=== PATIENT | male | born 1960 | race Caucasian/White ===

== ENCOUNTER 2018-04-16 15:09 | Emergency (ER) | payer OTHER ==
[~2018-04-16] VITALS: Ht 182.9 cm; Wt 102.0 kg
[2018-04-16 15:41] LABS: HEMATOCRIT 38.2 % (38.0-50.0); HEMOGLOBIN 13.6 G/DL (12.5-16.6); MCHC 35.6 G/DL (30.0-36.0); PLATELET COUNT 164 K/uL (156-360); RBC DIS.WIDTH-CV 12.5 % (11.8-14.6); RBC DIS.WIDTH-SD 39.2 % (39-53); RED BLOOD COUNT 4.39 M/uL (4.00-5.50); WHITE BLOOD COUNT 8.6 K/uL (4.1-10.2)
[2018-04-16 15:54] LABS: ALBUMIN 3.7 g/dL (3.2-4.8); CHLORIDE 108 mEq/L (99-109); POTASSIUM 4.3 mEq/L (3.7-5.4); SODIUM 139 mEq/L (136-147)
[2018-04-16 15:56] LABS: GLUCOSE 105 mg/dL (70-99); TOTAL PROTEIN 6.6 g/dL (6.4-8.3)
[2018-04-16 16:00] LABS: ALKALINE PHOSPHATASE 67 IU/L (3-129); CREATININE 1.1 mg/dL (0.6-1.3); GFR ESTIMATE (CALCULATED) > 59 mL/min/ (58.99-99999)
[2018-04-16 16:01] LABS: UREA NITROGEN (BUN) 16 mg/dL (9-23)
[2018-04-16 16:02] LABS: AST (GOT) 22 IU/L (2-34)
[2018-04-16 16:03] LABS: ALT (GPT) 29 IU/L (3-49); LIPASE 18 U/L (1.0-51.0)
[2018-04-16 16:28] LABS: APPEARANCE CLEAR ((CLEAR)); BILIRUBIN NEGATIVE; BLOOD NEGATIVE; COLOR YELLOW ((YELLOW)); GLUCOSE (STRIP) NEGATIVE; KETONES NEGATIVE; LEUKOCYTES NEGATIVE; NITRITE NEGATIVE; PROTEIN (STRIP) NEGATIVE; SPECIFIC GRAVITY 1.021 (1.000-1.030); UCUL ADDED? NO; UROBILINOGEN 0.2 MG/DL (0.2-1.0)
[2018-04-16] MEDS ORDERED: FLAGYL500 MG PO (17:43)
[2018-04-16] MEDS ORDERED: CIPRO500 MG PO (17:43)
[2018-04-16] MEDS ORDERED: BENTYL20 MG PO (17:50)
[2018-04-16 18:25] VITALS: BP 137/76
== END 2018-04-16 18:40 | disposition home or self-care (01) ==
LOC: EME 15:09
PROVIDERS: Nurse Practitioner Family
DX: K57.92 Diverticulitis of intestine, part unspecified, without perforation or abscess without bleeding (principal); Z90.49 Acquired absence of other specified parts of digestive tract
CPT/HCPCS: 74176; 80053; 81003; 83690; 85027; 99281; 99283